=== PATIENT | female | born 1970 | race Caucasian/White ===

== ENCOUNTER → 2017-04-23 | Outpatient (CLI) | payer BC ==
--- NOTE | 2017-04-23 21:19 | WWHP ---
[facility] - HISTORY AND PHYSICAL DATE OF SERVICE: 04/23/2017 CHIEF COMPLAINT: The patient is here for her routine gynecologic exam and mammogram. HPI: This is a 46-year-old G4, P2-0-2-2 with an LMP of 03/11/2017. She states she has had some recent slight menstrual irregularity. In February, she had two periods and did not have a period in March. She is status post tubal ligation. She also states she has felt "hormonal." She states she has days that are "dark." She denies suicidal thoughts. She has experienced occasional hot flashes. Prior to February, her periods were regular every month. The patient is currently undergoing a divorce and this should be finalized soon. She does have a new partner since September 2016 and is sexually active. She has not been using condoms. PAST MEDICAL HISTORY: Chronic back pain, seasonal allergies, vertigo, and gastroesophageal reflux disease. MEDICATIONS: Prevacid daily, Flonase daily. ALLERGIES: ASPIRIN, WHICH CAUSE NAUSEA AND VOMITING. PAST SURGICAL HISTORY: Tubal ligation in 2007, breast lump removed in the past which was benign. 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 SOCIAL HISTORY: She denies tobacco use. She previously drank up to 24 beers per week, but has decreased this to 4 drinks per week. She does use medical marijuana and denies any other drug use. She is currently undergoing a divorce and has been with her current boyfriend since September 2016 and is sexually active. 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 FAMILY HISTORY: Unchanged from the 09/07/2015 H and P. REVIEW OF SYSTEMS: She has lost about 19 pounds over the last year. She denies respiratory, cardiac or GI problems. PHYSICAL EXAM: Blood pressure 103/65, height 5 feet 10 inches, weight 157 pounds, temperature 97.8, pulse 65. Her BMI is 23. This is a well-developed, well-nourished white female who is alert and oriented x3, in no acute distress. HEENT is within normal limits. NECK: Supple without mass or thyromegaly. Chest and lungs: Clear to auscultation. HEART: Regular rate and rhythm breasts are without mass or discharge. Axillary exam is negative for adenopathy. Back negative for CVA tenderness. ABDOMEN: Soft, nontender, without palpable masses. Pelvic exam normal external genitalia. Cervix and vagina appear normal. There is no unusual discharge. There is no evidence of prolapse. There is no cervical motion tenderness. The uterus is mid position nongravid size and nontender. There are no palpable adnexal masses or tenderness. Rectal exam is negative for mass or tenderness and is negative for occult blood. Extremities nontender. IMPRESSION: 1. 46-year-old premenopausal female who is status post tubal ligation with normal gynecologic exam. 2. The patient has had some recent menstrual irregularity during the past 2 months with occasional hot flashes, possible perimenopause. 3. The patient has had some emotional changes which can be related to her current divorce. It may also be related to possible hormonal changes related to the perimenopause. PLAN: 1. Pap smear was deferred since she had a normal one last year. 2. Self breast examination was discussed. 3. Mammogram will be done today. 4. Blood test to be done today will include HIV, hepatitis B surface antigen, hepatitis C antibody, RPR and, TSH. 5. GC and chlamydia testing from the cervix has been obtained. 6. STD prevention was discussed. I have recommended condom use if she is sexually active. 7. We have discussed options such as counseling, especially since she is going through a stressful time with her divorce and is having some emotional issues. The [employer] pamphlet, Who to Call, was given to the patient for possible counseling and social security assessor. She was also instructed to call if she is having worsening of her emotional changes or if she would like to talk to someone regarding her social situation, especially if she has any types of suicidal thoughts. She states she will notify me if this is the case. 8. She will keep a menstrual calendar and return if she is having greater menstrual problems. 9. She will return in 1 year and p.r.n. MMODL / IJN: [id number] / GT
[2017-04-24 01:59] LABS: Treponemal Ab Non-Reactive (Non-Reactive)
--- NOTE | 2017-04-24 13:36 | MM ---
Reason for exam: screening (asymptomatic). Last mammogram was performed 1 year and 7 months ago. History: Patient history of endometrial cancer. Family history of breast cancer in aunt. Benign excisional biopsy, March 30, 1997. Physical Findings: A clinical breast exam by your physician is recommended on an annual basis and results should be correlated with mammographic findings. MG 3D Screening Mammo W/Cad Bilateral CC and MLO view(s) were taken. Prior study comparison: September 07, 2015, bilateral MG 3d screening mammo w/cad. March 24, 1997, bilateral special view mammogram. The breast tissue is heterogeneously dense. This may lower the sensitivity of mammography. Increasing group of microcalcifications upper inner right breast. This finding is changed when compared with previous exams. ASSESSMENT: Incomplete: need additional imaging evaluation, BI-RAD 0 RECOMMENDATION: Special view mammogram of the right breast. [facility] will attempt to contact patient to return for supplemental views.
== END ==
LOC: WWCWWP 15:46
PROVIDERS: ATTEND Obstetrics & Gynecology
DX: Z12.31 Encounter for screening mammogram for malignant neoplasm of breast (principal); Z11.3 Encounter for screening for infections with a predominantly sexual mode of transmission; Z00.00 Encounter for general adult medical examination without abnormal findings
CPT/HCPCS: 86803; 84443; 87340; 87491; 87591; 86780; 87390; 77063; 36415; G0202

== ENCOUNTER → 2017-04-26 | Outpatient (CLI) | payer BC ==
--- NOTE | 2017-04-29 13:14 | MM ---
Reason for exam: additional evaluation requested from abnormal screening. Last mammogram was performed less than 1 month ago. History: Patient history of endometrial cancer. Family history of breast cancer in aunt. Benign excisional biopsy, March 30, 1997. Physical Findings: Nurse did not find any significant physical abnormalities on exam. MG Work Up Mamm w CAD RT LM, CC with magnification, and LM with magnification view(s) were taken of the right breast. Prior study comparison: April 23, 2017, bilateral MG 3d screening mammo w/cad. September 07, 2015, bilateral MG 3d screening mammo w/cad. The breast tissue is heterogeneously dense. This may lower the sensitivity of mammography. Finding: There are intermediate concern, suspicious round, grouped/clustered calcifications in the lower outer quadrant, middle position of the right breast. These results were verbally communicated with the patient and result sheet given to the patient on 04/26/17. ASSESSMENT: Suspicious, BI-RAD 4 RECOMMENDATION: Surgical consultation and stereotactic core biopsy of the right breast. Called Dr. Parker with mammographic findings and has scheduled an appointment for the patient for 05/02/17 at 11:[address] Reyez. PRELIMINARY REPORT CALLED AND FAXED TO DR. REYEZ ON 04/29/17.
== END | disposition home or self-care (01) ==
LOC: RADMAMWWP 15:59
PROVIDERS: ATTEND Obstetrics & Gynecology
DX: R92.8 Other abnormal and inconclusive findings on diagnostic imaging of breast (principal); Z98.890 Other specified postprocedural states

== ENCOUNTER → 2017-05-13 | Day surgery (SDC) | payer BC ==
[2017-05-13 13:45] VITALS: RESP 16; BMI 22.6
[2017-05-13 15:34] VITALS: BP 120/81; PULSE 68; TEMP 97.5
--- NOTE | 2017-05-13 20:08 | MM ---
EXAMINATION TYPE: MG stereo VAD BX RT DATE OF EXAM: 05/13/2017 COMPARISON: 04/23/2017 and 04/26/2017 CLINICAL HISTORY: 46-year-old female with a microcalcifications TECHNIQUE: Stereotactic guided core biopsy of the right breast. FINDINGS: The procedure of stereotactic guided core biopsy was explained to the patient. Benefits, alternatives, and risks were discussed. An informed consent was then obtained. The shortness pathway for biopsy was chosen. Shortness pathway was CC from below approach. I performed the localization, followed by the remainder of the procedure. A vacuum assisted biopsy gun was used to obtain multiple core samples. Initially, there was malfunction of the biopsy needle. Suction was present but there was no cutting action. The needle was exchanged out and appropriate samples were subsequently acquired. The patient tolerated the procedure well without any immediate complication. The patient was kept in the radiology department for short stay after the procedure and then discharged home in stable condition. Targeted calcifications are identified in specimen mammogram. Post biopsy mammogram shows approximately 1.5 to 2.0 cm of inferior clip migration relative to the targeted microcalcifications on the preprocedure images. IMPRESSION: SUCCESSFUL, UNCOMPLICATED STEREOTACTIC GUIDED CORE BIOPSY OF RIGHT BREAST MICROCALCIFICATIONS; NOTE SOME INFERIOR CLIP MIGRATION. FULL PATHOLOGY RESULTS TO FOLLOW. Pathology Results: Benign BREAST, RIGHT, STEREOTACTIC CORE BIOPSY: FIBROCYSTIC CHANGE (STROMAL FIBROSIS, CYST FORMATION, APOCRINE METAPLASIA, ADENOSIS, DUCT HYPERPLASIA AND CALCIFICATIONS). Recommendation Follow up mammogram of the right breast in 6 months. GT
== END ==
LOC: RADMAMWWP 13:24
PROVIDERS: ATTEND Surgery
DX: N60.31 Fibrosclerosis of right breast (principal); N60.01 Solitary cyst of right breast; N60.81 Other benign mammary dysplasias of right breast; N60.21 Fibroadenosis of right breast; R92.1 Mammographic calcification found on diagnostic imaging of breast; Z88.6 Allergy status to analgesic agent; R92.0 Mammographic microcalcification found on diagnostic imaging of breast
CPT/HCPCS: 19081; A4648; J2001; 88305

== ENCOUNTER → 2019-05-27 | Outpatient (CLI) | payer BC ==
[2019-05-27 08:19] VITALS: BP 108/73; PULSE 82; RESP 18; TEMP 97.9
--- NOTE | 2019-05-27 09:16 | P.HPOB ---
History of Present Illness H&P Date: 05/27/19 Chief Complaint: The patient is here for her routine gynecologic exam and ma mmogram. This is a 48-year-old with an LMP of 05/03/2019. The patient is status post tubal ligation. The patient is complaining of urinary incontinence with coughing, laughing, and sneezing. She states that now can happen just about every time. She states it is an immediate leak without urge sensation. Menstrual periods have been fairly regular every month. She did have a longer than normal menstrual period in February which lasted 20 days and this was unusual for her. She has been experiencing hot flashes for about 1 year but they are not very severe. She is remarried and states she is much more sexually active than with her previous . She often has sexual activity twice a day. She states she has had a few episodes where she has had cramping either during or after sexual intercourse. This has happened about 5 times over the past 2 years. This has not been a major problem for her. Review of Systems She has gained about 25 pounds over the past 2 years. She states this was after losing a significant amount of weight during her divorce at that time. She has gained that weight back. She denies respiratory or cardiac problems. GI: Severe gastric reflux and she is currently undergoing a workup for this through another doctor. Past Medical History Past Medical History: GERD/Reflux Additional Past Medical History / Comment(s): Chronic back pain, seasonal ALLERGIES, vertigo. 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 History of Any Multi-Drug Resistant Organisms: None Reported Past Surgical History: Breast Surgery, Tubal Ligation Additional Past Surgical History / Comment(s): 1996-right excisional biopsy benign. Past Anesthesia/Blood Transfusion Reactions: No Reported Reaction Past Psychological History: No Psychological Hx Reported Smoking Status: Never smoker Past Alcohol Use History: Occasional Additional Past Alcohol Use History / Comment(s): 4 drinks weekly. She previously was a heavier alcohol user. Past Drug Use History: Marijuana Additional Drug Use History / Comment(s): medical marijuana card Additional History: She has been since February 2019 and this is her second marriage. She has been with her since 2016. 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 - Past Family History Grandparents Family Medical History: Cancer, Diabetes Mellitus Additional Family Medical History / Comment(s): Grandparents had heart disease. A maternal aunt had breast cancer. A grandfather had diabetes. Medications and Allergies Home Medications Medication Instructions Recorded Confirmed Type Fluticasone Nasal [place] [Flonase 2 spr EA NOSTRIL DAILY 08/22/15 05/27/19 History Nasal [place]] Lansoprazole [Prevacid] 30 mg PO DAILY 08/22/15 05/27/19 History Cetirizine HCl [Zyrtec] 10 mg PO DAILY 05/27/19 05/27/19 History Allergies Allergy/AdvReac Type Severity Reaction Status Date / Time aspirin AdvReac Vomiting Verified 05/27/19 08:13 Exam Vital Signs Temp Pulse Resp BP Pulse Ox 05/27/19 08:17 97.9 F 82 18 108/73 98 Intake and Output 05/26/19 05/27/19 05/27/19 22:59 06:59 14:59 Other: Weight 82.554 kg Height 5 feet 10 inches, weight 182 pounds, BMI 26. This is a well-developed well-nourished white female who is alert and oriented times 3 in no acute distress. HEENT: Within normal limits. NECK: Supple without mass or thyromegaly. CHEST AND LUNGS: Clear to auscultation. HEART: Regular rate and rhythm. BREASTS: Are without mass or discharge. AXILLARY EXAM: Negative for adenopathy. BACK: Negative for CVA tenderness. ABDOMEN: Soft, nontender, without palpable masses. PELVIC EXAM: Normal external genitalia. Cervix and vagina appear normal. The cervix is slightly friable upon doing the Pap smear. There is no cervical motion tenderness There is no unusual discharge. There is no evidence of prolapse at rest. With cough and Valsalva there is moderate urethral and bladder mobility with no demonstrated urinary leakage. The uterus is midposition, nongravid size and nontender. There are no palpable adnexal masses or tenderness. RECTAL EXAM: negative for mass or tenderness and is negative for occult blood. Anal sphincter tone is slightly decreased. EXTREMITIES: Nontender. IMPRESSION: 1. 48-year-old female with normal gynecologic exam at rest who is status post tubal ligation. 2. Moderate Stress urinary incontinence with moderate urethral hypermobility. 3. Infrequent postcoital or coital cramping with no significant physical findings at this time. 4. Probable perimenopausal state. PLAN: 1. Pap smear was performed. 2. Self breast awareness was discussed with the patient. 3. Screening mammogram will be done today. 4. The patient will keep a menstrual and symptom calendar. She will call if she is having menstrual problems. 5. We have discussed ketal exercises and timed voids. She is also requesting a referral to a gynecologic urologist. She will be referred to Dr. Diez at [facility]. 6. If she is having more frequent cramping associated with sexual activity, she was instructed to call and we will consider further evaluation and possible pelvic ultrasound. 7. She was advised to return in one year for her annual well woman exam and as needed.
--- NOTE | 2019-05-28 11:12 | MM ---
Reason for exam: screening (asymptomatic). Last mammogram was performed 2 years and 1 month ago. History: Patient history of endometrial cancer. Family history of breast cancer in aunt. Benign MG stereo VAD BX RT of the right breast, May 13, 2017. Benign excisional biopsy, March 30, 1997. Physical Findings: A clinical breast exam by your physician is recommended on an annual basis and results should be correlated with mammographic findings. MG 3D Screening Mammo W/Cad Bilateral CC and MLO view(s) were taken. Prior study comparison: April 26, 2017, right breast MG work up mamm w CAD RT. April 23, 2017, bilateral MG 3d screening mammo w/cad. The breast tissue is heterogeneously dense. This may lower the sensitivity of mammography. There is no discrete abnormality. No significant changes when compared with prior studies. ASSESSMENT: Negative, BI-RAD 1 RECOMMENDATION: Routine screening mammogram of both breasts in 1 year.
== END ==
LOC: WWCWWP 08:06
PROVIDERS: ATTEND Obstetrics & Gynecology
DX: Z12.31 Encounter for screening mammogram for malignant neoplasm of breast (principal)
CPT/HCPCS: 77063; 77067

== ENCOUNTER 2019-06-11 14:20 | Emergency (ER) | payer BC ==
[2019-06-11] MEDS ORDERED: SODIUM CHLORIDE 0.9% 1,000 ML IV STA (16:45)
[2019-06-11] MEDS ORDERED: FAMOTIDINE 20 MG/2 ML VIAL IV STA (16:45)
--- NOTE | 2019-06-11 16:56 | ED ---
Abdominal Pain HPI - General Chief Complaint: Abdominal Pain Stated Complaint: Upper GI infection Time Seen by Provider: 06/11/19 16:32 Source: patient Mode of arrival: ambulatory Limitations: no limitations - History of Present Illness Initial Comments: Patient is a 48-year-old female with history of GERD presenting to emergency Department with a chief complaint of nausea and vomiting down pain. Patient reports symptoms began about one year ago after she was diagnosed. Patient reports she takes Prevacid daily. Patient reports her last 2 weeks she has developed increased nausea and vomiting. Patient reports she had an upper endoscopy performed which ruled out ulcers. Patient reports she is scheduled to have a right upper quadrant ultrasound. Patient reports the pain is typically associated after eating. She reports right upper quadrant, epigastric left upper quadrant abdominal pain. Had one episode of diarrhea today denies night sweats or chills. Denies taking any medication. Denies increased urgency or frequency or dysuria. Denies any vaginal bleeding or discharge. Denies hematuria, hematochezia or melena. - Related Data Home Medications Medication Instructions Recorded Confirmed Fluticasone Nasal [place] [Flonase 2 spr EA NOSTRIL DAILY 08/22/15 05/27/19 Nasal [place]] Lansoprazole [Prevacid] 30 mg PO DAILY 08/22/15 05/27/19 Cetirizine HCl [Zyrtec] 10 mg PO DAILY 05/27/19 05/27/19 Previous Rx's Medication Instructions Recorded Metoclopramide [Reglan] 10 mg PO TID PRN #15 tab 06/11/19 Allergies Allergy/AdvReac Type Severity Reaction Status Date / Time aspirin AdvReac Vomiting Verified 06/11/19 14:54 Review of Systems ROS Statement: Those systems with pertinent positive or pertinent negative responses have been documented in the HPI. ROS Other: All systems not noted in ROS Statement are negative. Past Medical History Past Medical History: GERD/Reflux Additional Past Medical History / Comment(s): Chronic back pain, seasonal ALLERGIES, vertigo. 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 History of Any Multi-Drug Resistant Organisms: None Reported Past Surgical History: Breast Surgery, Tubal Ligation Additional Past Surgical History / Comment(s): 1996-right excisional biopsy benign. Past Anesthesia/Blood Transfusion Reactions: No Reported Reaction Past Psychological History: No Psychological Hx Reported Smoking Status: Never smoker Past Alcohol Use History: Occasional Past Drug Use History: Marijuana - Past Family History Grandparents Family Medical History: Cancer, Diabetes Mellitus Additional Family Medical History / Comment(s): Grandparents had heart disease. A maternal aunt had breast cancer. A grandfather had diabetes. General Exam Limitations: no limitations General appearance: alert, in no apparent distress, in distress Head exam: Present: atraumatic, normocephalic, normal inspection Eye exam: Present: normal appearance, PERRL, EOMI Pupils: Present: normal accommodation ENT exam: Present: normal exam, normal oropharynx, mucous membranes moist, TM's normal bilaterally, normal external ear exam Neck exam: Present: normal inspection, full ROM Respiratory exam: Present: normal lung sounds bilaterally Cardiovascular Exam: Present: regular rate, normal rhythm, normal heart sounds GI/Abdominal exam: Present: soft, tenderness (Left upper quadrant, epigastric and right upper quadrant. Negative Adame. Negative McBurney point tenderness.), normal bowel sounds. Absent: distended, guarding, rebound, rigid, bruit, pulsatile mass, hernia Extremities exam: Present: normal inspection, full ROM Back exam: Present: normal inspection, full ROM Neurological exam: Present: alert, oriented X3 Psychiatric exam: Present: normal affect, normal mood Skin exam: Present: warm, dry, intact, normal color Course Vital Signs 06/11/19 06/11/19 14:50 18:24 Temperature 97.3 F L 98.8 F Pulse Rate 90 74 Respiratory 16 18 Rate Blood Pressure 106/58 135/67 O2 Sat by Pulse 99 100 Oximetry Medical Decision Making - Medical Decision Making She is a 48-year-old female presenting to emergency Department with chief complaint of abdominal pain. Patient is a ongoing episodes of vomiting and diarrhea for the past 8 months. She has been dealing with GERD for about a year. On exam there is left upper quadrant, epigastric and right upper quadrant abdominal pain. Negative Adame sign. Patient has leukocytosis of 15,000 which is suspect is secondary to the nausea or vomiting. Patient was given fluids, antiemetics and analgesia. On reevaluation patient reports improvement in her symptoms. However, she reports the pain continues to be there. CT of abdomen and pelvis performed showing no acute pathologies. Small haital hernia noted. I suspect the patient's symptoms are secondary to her GERD. Patient advised to continue taking the Prevacid at home. Patient was to follow with primary care. Strict return parameters were thoroughly discussed with patient was understanding and agreeable. Case discussed with physician. - Lab Data Result diagrams: 06/11/19 16:55 06/11/19 16:55 Lab Results 06/11/19 06/11/19 Range/Units 16:55 16:55 WBC 15.3 H (3.8-10.6) k/uL RBC 4.52 (3.80-5.40) m/uL Hgb 12.9 (11.4-16.0) gm/dL Hct 38.5 (34.0-46.0) % MCV 85.2 (80.0-100.0) fL MCH 28.6 (25.0-35.0) pg MCHC 33.5 (31.0-37.0) g/dL RDW 11.5 (11.5-15.5) % Plt Count 295 (150-450) k/uL Neutrophils % 95 % Lymphocytes % 2 % Monocytes % 1 % Eosinophils % 2 % Basophils % 0 % Neutrophils # 14.5 H (1.3-7.7) k/uL Lymphocytes # 0.3 L (1.0-4.8) k/uL Monocytes # 0.2 (0-1.0) k/uL Eosinophils # 0.3 (0-0.7) k/uL Basophils # 0.0 (0-0.2) k/uL Sodium 139 (137-145) mmol/L Potassium 4.2 (3.5-5.1) mmol/L Chloride 108 H (98-107) mmol/L Carbon Dioxide 18 L (22-30) mmol/L Anion Gap 13 mmol/L BUN 18 H (7-17) mg/dL Creatinine 0.55 (0.52-1.04) mg/dL Est GFR (CKD-EPI)AfAm >90 (>60 ml/min/1.73 sqM) Est GFR (CKD-EPI)NonAf >90 (>60 ml/min/1.73 sqM) Glucose 147 H (74-99) mg/dL Calcium 10.0 (8.4-10.2) mg/dL Total Bilirubin 0.7 (0.2-1.3) mg/dL AST 29 (14-36) U/L ALT 18 (4-34) U/L Alkaline Phosphatase 67 (38-126) U/L Total Protein 7.7 (6.3-8.2) g/dL Albumin 4.7 (3.5-5.0) g/dL Amylase 76 (30-110) U/L Lipase 85 (23-300) U/L Disposition Clinical Impression: Abdominal pain, Nausea & vomiting Disposition: HOME SELF-CARE Condition: Stable Instructions (If sedation given, give patient instructions): Abdominal Pain (ED) Additional Instructions: Please follow up with primary care. Please return to emergency department if symptoms worsen. Please take prescribed medication as directed. Prescriptions: Metoclopramide [Reglan] 10 mg PO TID PRN #15 tab PRN Reason: GERD Is patient prescribed a controlled substance at d/c from ED?: No Referrals: Heri Zayas MD [Primary Care Provider] - 1-2 days Time of Disposition: 18:49
[2019-06-11 17:18] LABS: ALT 18 U/L (4-34); AST 29 U/L (14-36); African American GFR (CKD) >90 (>60 ml/min/1.73 sqM); Albumin 4.7 g/dL (3.5-5.0); Alkaline Phosphatase 67 U/L (38-126); Amylase 76 U/L (30-110); Anion Gap 13 mmol/L; Basophils % (A) 0 %; Blood Urea Nitrogen 18 mg/dL (7-17); Carbon Dioxide 18 mmol/L (22-30); Chloride 108 mmol/L (98-107); Eosinophils # (A) 0.3 k/uL (0-0.7); Eosinophils % (A) 2 %; Glucose 147 mg/dL (74-99); HCT 38.5 % (34.0-46.0); HGB 12.9 gm/dL (11.4-16.0); Lymphocytes # (A) 0.3 k/uL (1.0-4.8); Lymphocytes % (A) 2 %; MCH 28.6 pg (25.0-35.0); MCHC 33.5 g/dL (31.0-37.0); MCV 85.2 fL (80.0-100.0); Mean Platelet Volume 8.6; Monocytes # (A) 0.2 k/uL (0-1.0); Monocytes % (A) 1 %; Neutrophils # (A) 14.5 k/uL (1.3-7.7); Neutrophils % (A) 95 %; Non-African American GFR(CKD) >90 (>60 ml/min/1.73 sqM); Platelet Count 295 k/uL (150-450); Potassium 4.2 mmol/L (3.5-5.1); RBC 4.52 m/uL (3.80-5.40); RDW 11.5 % (11.5-15.5); Sodium 139 mmol/L (137-145); Total Bilirubin 0.7 mg/dL (0.2-1.3); Total Protein 7.7 g/dL (6.3-8.2); WBC 15.3 k/uL (3.8-10.6)
[2019-06-11] MEDS ORDERED: METOCLOPRAMIDE 5 MG/ML 2 ML VIAL IVP STA (17:56)
[2019-06-11] MEDS ORDERED: diphenhydrAMINE 50 MG/ML 1 ML VIAL IVP STA (17:57)
[2019-06-11] MEDS ORDERED: MORPHINE SULFATE 4 MG/ML SYRINGE IVP STA (17:57)
--- NOTE | 2019-06-11 18:24 | CT ---
EXAMINATION TYPE: CT abdomen pelvis w con DATE OF EXAM: 06/11/2019 COMPARISON: None HISTORY: Abdominal pain, nausea and vomiting. CT DLP: 1041.4 mGycm Automated exposure control for dose reduction was used. CONTRAST: Performed with IV Contrast, patient injected with 100ml mL of Isovue 300. Exam performed from the diaphragm to the floor the pelvis. Lung bases are clear. There is no pleural effusion. Heart appears normal. There is small hiatal herni a. Liver spleen pancreas gallbladder appear normal. Bile ducts are not dilated. There is no adrenal mass. Kidneys show satisfactory contrast opacification. There is no hydronephrosi s. Ureters are not dilated. There is no retroperitoneal adenopathy. Bladder distends smoothly. There is no inguinal hernia. Uterus is anteverted. There cul-de-sac is clear of fluid. Lumbar spine is inta ct. Bony pelvis is intact. There are clips from tubal ligation. There is no sign of thickened appendix. There is no mesenteric e andres. There is no ascites or free air. There is no evidence of bowel obstruction. IMPRESSION: Negative CT scan abdomen and pelvis.
[2019-06-11 18:25] VITALS: BP 135/67; PULSE 74; RESP 18; TEMP 98.8
== END 2019-06-11 19:00 | disposition home or self-care (01) ==
LOC: EC 14:20
DX: R11.2 Nausea with vomiting, unspecified (principal); R10.11 Right upper quadrant pain; R10.13 Epigastric pain; R10.12 Left upper quadrant pain; D72.829 Elevated white blood cell count, unspecified; K44.9 Diaphragmatic hernia without obstruction or gangrene; R19.7 Diarrhea, unspecified; K21.9 Gastro-esophageal reflux disease without esophagitis; Z88.6 Allergy status to analgesic agent; Z79.51 Long term (current) use of inhaled steroids; Z79.899 Other long term (current) drug therapy; Z91.048 Other nonmedicinal substance allergy status
CPT/HCPCS: 36415; 80053; 82150; 83690; 85025; 74177; 99284; 96374; 96375 ×3; 96361; J2270; J1200; J2765; Q9967

== ENCOUNTER → 2019-06-12 | Outpatient (CLI) | payer BC ==
--- NOTE | 2019-06-12 10:33 | US ---
EXAMINATION TYPE: US abdomen limited DATE OF EXAM: 06/12/2019 COMPARISON: CT from yesterday CLINICAL HISTORY: R10.13 Epigastric Pain, K21.9 GERD, R11.0 Nausea. EXAM MEASUREMENTS: Liver Length: 12.6 cm Gallbladder Wall: 0.2 cm CBD: 0.6 cm Right Kidney: 10.5 x 5.2 x 5.0 cm Pancreas: Tail obscured by overlying bowel gas. Duct visualized measuring 0.2 cm Liver: wnl Gallbladder: wnl Evidence for sonographic Aadme's sign: No CBD: wnl Right Kidney: No hydronephrosis or masses seen IMPRESSION: Unremarkable study.
== END | disposition home or self-care (01) ==
LOC: RADUSWWP 10:03
PROVIDERS: ATTEND Family Medicine
DX: K21.9 Gastro-esophageal reflux disease without esophagitis (principal); R10.13 Epigastric pain; R11.0 Nausea
CPT/HCPCS: 76705

== ENCOUNTER → 2019-06-23 | Outpatient (CLI) | payer BC ==
--- NOTE | 2019-06-23 15:30 | NM ---
EXAMINATION TYPE: NM hepatobiliary w EF DATE OF EXAM: 06/23/2019 COMPARISON: Abdominal ultrasound dated 06/12/2019 HISTORY: Generalized abdominal pain TECHNIQUE: After the intravenous administration of 4.94 mCi Tc 99m Mebrofenin hepatobiliary scintigra phy is performed. Immediate images post injection. FINDINGS: There is satisfactory initial accumulation of tracer by the liver. The gallbladder is visualized wit hin 16 minutes. The small bowel activity is noted within 14 minutes. At one hour 8 ounces of oral e nsure plus is given to mimic CCK and gallbladder ejection fraction is calculated at 58 %, in the norm al range. Therefore there is no scintigraphic evidence of cystic or common bile duct obstruction to suggest acute cholecystitis or gallbladder dyskinesia. IMPRESSION: No scintigraphic evidence of acute cholecystitis, chronic cholecystitis, nor biliary dysk inesia.
== END | disposition home or self-care (01) ==
LOC: RADNMMAIN 13:03
PROVIDERS: ATTEND Family Medicine
DX: R10.84 Generalized abdominal pain (principal); R19.7 Diarrhea, unspecified; R11.2 Nausea with vomiting, unspecified; R10.13 Epigastric pain; Z88.6 Allergy status to analgesic agent
CPT/HCPCS: 78226; A9537

== ENCOUNTER 2020-02-05 06:44 | Emergency (ER) | payer BC, OTHER ==
[2020-02-05 06:56] VITALS: TEMP 97.8
[2020-02-05] MEDS ORDERED: SODIUM CHLORIDE 0.9% 1,000 ML IV STA ×2 (07:16)
[2020-02-05] MEDS ORDERED: ONDANSETRON 4 MG/2 ML VIAL IVP STA (07:16)
[2020-02-05] MEDS ORDERED: PANTOPRAZOLE 40 MG/10 ML VIAL IVP STA (07:18)
[2020-02-05] MEDS ORDERED: KETOROLAC 15 MG/ML 1 ML VIAL IVP STA (07:18)
--- NOTE | 2020-02-05 07:25 | ED ---
General Adult HPI - General Chief complaint: Nausea/Vomiting/Diarrhea Stated complaint: vomiting Time Seen by Provider: 02/05/20 07:04 Source: patient, RN notes reviewed, old records reviewed Mode of arrival: wheelchair - History of Present Illness Initial comments: Patient is a 49-year-old female she presents emergency department today for evaluation with chief complaint of nausea and vomiting starting at 1 AM. Patient states she is upper abdominal pain. She reports she's had similar symptoms this for. She denies any history of sick contacts but did recently return from a trip to [place]. He states that she has had upper endoscopies before. Surgical history includes bladder sling and ligation. - Related Data Home Medications Medication Instructions Recorded Confirmed Lansoprazole [Prevacid] 30 mg PO DAILY 08/22/15 02/05/20 Cetirizine HCl [Zyrtec] 10 mg PO DAILY 05/27/19 02/05/20 Previous Rx's Medication Instructions Recorded Ondansetron Odt [Zofran Odt] 4 mg PO Q8HR PRN #12 tab 02/05/20 Allergies Allergy/AdvReac Type Severity Reaction Status Date / Time aspirin AdvReac Vomiting Verified 02/05/20 08:51 Review of Systems ROS Statement: Those systems with pertinent positive or pertinent negative responses have been documented in the HPI. ROS Other: All systems not noted in ROS Statement are negative. Past Medical History Past Medical History: GERD/Reflux Additional Past Medical History / Comment(s): Chronic back pain, seasonal ALLERGIES, vertigo. 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 History of Any Multi-Drug Resistant Organisms: None Reported Past Surgical History: Breast Surgery, Tubal Ligation Additional Past Surgical History / Comment(s): 1996-right excisional biopsy benign. Past Anesthesia/Blood Transfusion Reactions: No Reported Reaction Past Psychological History: No Psychological Hx Reported Smoking Status: Never smoker Past Alcohol Use History: Occasional Past Drug Use History: Marijuana - Past Family History Grandparents Family Medical History: Cancer, Diabetes Mellitus Additional Family Medical History / Comment(s): Grandparents had heart disease. A maternal aunt had breast cancer. A grandfather had diabetes. General Exam - General Exam Comments Initial Comments: 49 year old female. No distress. General appearance: alert, in no apparent distress Head exam: Present: atraumatic, normocephalic, normal inspection Eye exam: Present: normal appearance, PERRL, EOMI. Absent: scleral icterus, conjunctival injection, periorbital swelling ENT exam: Present: normal exam, mucous membranes moist Neck exam: Present: normal inspection. Absent: tenderness, meningismus, lymphadenopathy Respiratory exam: Present: normal lung sounds bilaterally. Absent: respiratory distress, wheezes, rales, rhonchi, stridor Cardiovascular Exam: Present: regular rate, normal rhythm, normal heart sounds. Absent: systolic murmur, diastolic murmur, rubs, gallop, clicks GI/Abdominal exam: Present: soft, normal bowel sounds. Absent: distended, t enderness, guarding, rebound, rigid Extremities exam: Present: normal inspection, full ROM, normal capillary refill. Absent: tenderness, pedal edema, joint swelling, calf tenderness Back exam: Present: normal inspection Neurological exam: Present: alert, oriented X3, CN II-XII intact Psychiatric exam: Present: normal affect, normal mood Skin exam: Present: warm, dry, intact, normal color. Absent: rash Course Vital Signs 02/05/20 02/05/20 06:52 11:13 Temperature 97.8 F Pulse Rate 82 72 Respiratory 16 18 Rate Blood Pressure 115/76 112/58 O2 Sat by Pulse 96 100 Oximetry Medical Decision Making - Medical Decision Making 49-year-old female presents nausea and vomiting starting 1 AM. With epigastric abdominal pain. She is no focal tenderness. Labs reviewed relatively unremarkable. She is given nausea medication Protonix to report some relief but still slightly nauseated. She no further vomiting episodes and emergency department. And Patient was seen putting her fingers in her throat. Her labs did show that she had a mildly elevated glucose of 229. I discussed this with the diagnostic of diabetes. I discussed that she is follow-up with PCP. Discussed case with Dr. Choi whom contacted patient's PCP for new onset diabetes mellitus vomiting. Recommended close follow-up with him in the office. Patient and Patient were informed of this. We'll discharge her with much medication Protonix. - Lab Data Result diagrams: 02/05/20 07:47 02/05/20 07:47 Lab Results 02/05/20 02/05/20 Range/Units 07:47 07:47 WBC 12.7 H (3.8-10.6) k/uL RBC 4.53 (3.80-5.40) m/uL Hgb 13.0 (11.4-16.0) gm/dL Hct 39.1 (34.0-46.0) % MCV 86.1 (80.0-100.0) fL MCH 28.6 (25.0-35.0) pg MCHC 33.2 (31.0-37.0) g/dL RDW 13.0 (11.5-15.5) % Plt Count 294 (150-450) k/uL Neutrophils % 92 % Lymphocytes % 5 % Monocytes % 3 % Eosinophils % 0 % Basophils % 0 % Neutrophils # 11.7 H (1.3-7.7) k/uL Lymphocytes # 0.7 L (1.0-4.8) k/uL Monocytes # 0.3 (0-1.0) k/uL Eosinophils # 0.0 (0-0.7) k/uL Basophils # 0.0 (0-0.2) k/uL Sodium 138 (137-145) mmol/L Potassium 3.9 (3.5-5.1) mmol/L Chloride 107 (98-107) mmol/L Carbon Dioxide 21 L (22-30) mmol/L Anion Gap 10 mmol/L BUN 17 (7-17) mg/dL Creatinine 0.59 (0.52-1.04) mg/dL Est GFR (CKD-EPI)AfAm >90 (>60 ml/min/1.73 sqM) Est GFR (CKD-EPI)NonAf >90 (>60 ml/min/1.73 sqM) Glucose 229 H (74-99) mg/dL Calcium 9.4 (8.4-10.2) mg/dL Total Bilirubin 0.6 (0.2-1.3) mg/dL AST 23 (14-36) U/L ALT 16 (4-34) U/L Alkaline Phosphatase 93 (38-126) U/L Total Protein 7.2 (6.3-8.2) g/dL Albumin 4.3 (3.5-5.0) g/dL Amylase 64 (30-110) U/L Lipase 61 (23-300) U/L Disposition Clinical Impression: Nausea & vomiting, Gastroenteritis Disposition: HOME SELF-CARE Condition: Good Instructions (If sedation given, give patient instructions): Acute Nausea and Vomiting (ED) Additional Instructions: Patient advised to go directly to Dr. Zayas's office. Prescriptions: Ondansetron Odt [Zofran Odt] 4 mg PO Q8HR PRN #12 tab PRN Reason: Nausea Is patient prescribed a controlled substance at d/c from ED?: No Referrals: Heri Zayas MD [Primary Care Provider] - 1-2 days Time of Disposition: 10:26
[2020-02-05 08:07] LABS: Basophils % (A) 0 %; Eosinophils % (A) 0 %; HCT 39.1 % (34.0-46.0); Lymphocytes # (A) 0.7 k/uL (1.0-4.8); Lymphocytes % (A) 5 %; MCH 28.6 pg (25.0-35.0); MCHC 33.2 g/dL (31.0-37.0); MCV 86.1 fL (80.0-100.0); Mean Platelet Volume 8.2; Monocytes # (A) 0.3 k/uL (0-1.0); Monocytes % (A) 3 %; Neutrophils # (A) 11.7 k/uL (1.3-7.7); Neutrophils % (A) 92 %; Platelet Count 294 k/uL (150-450); RBC 4.53 m/uL (3.80-5.40); WBC 12.7 k/uL (3.8-10.6)
[2020-02-05 08:19] LABS: ALT 16 U/L (4-34); AST 23 U/L (14-36); African American GFR (CKD) >90 (>60 ml/min/1.73 sqM); Albumin 4.3 g/dL (3.5-5.0); Alkaline Phosphatase 93 U/L (38-126); Amylase 64 U/L (30-110); Anion Gap 10 mmol/L; Blood Urea Nitrogen 17 mg/dL (7-17); Calcium 9.4 mg/dL (8.4-10.2); Carbon Dioxide 21 mmol/L (22-30); Chloride 107 mmol/L (98-107); Glucose 229 mg/dL (74-99); Non-African American GFR(CKD) >90 (>60 ml/min/1.73 sqM); Potassium 3.9 mmol/L (3.5-5.1); Sodium 138 mmol/L (137-145); Total Bilirubin 0.6 mg/dL (0.2-1.3); Total Protein 7.2 g/dL (6.3-8.2)
[2020-02-05] MEDS ORDERED: SODIUM CHLORIDE 0.9% 1,000 ML IV ONE (09:09)
[2020-02-05] MEDS ORDERED: diphenhydrAMINE 50 MG/ML 1 ML VIAL IVP STA (09:09)
[2020-02-05] MEDS ORDERED: METOCLOPRAMIDE 5 MG/ML 2 ML VIAL IVP STA (09:09)
[2020-02-05] MEDS ORDERED: ONDANSETRON 4 MG ODT STARTER PACK 2 TAB BTL PO STA (10:31)
[2020-02-05 11:15] VITALS: BP 112/58; PULSE 72; RESP 18
== END 2020-02-05 11:15 | disposition home or self-care (01) ==
LOC: EC 06:44
DX: K52.9 Noninfective gastroenteritis and colitis, unspecified (principal); E11.9 Type 2 diabetes mellitus without complications; K21.9 Gastro-esophageal reflux disease without esophagitis; Z79.899 Other long term (current) drug therapy; Z88.6 Allergy status to analgesic agent
CPT/HCPCS: 36415; 80053; 82150; 83690; 85025; 99284; 96374; 96375 ×4; 96361 ×3; J1200; J2765; J2405; J1885; S0119; C9113

== ENCOUNTER → 2020-07-20 | Outpatient (CLI) | payer BC, OTHER ==
[2020-07-20 08:16] VITALS: BP 117/67; PULSE 95; RESP 18; TEMP 98.2
--- NOTE | 2020-07-20 09:05 | P.HPOB ---
History of Present Illness H&P Date: 07/20/20 Chief Complaint: The patient is here for her routine gynecologic exam. This is a 49-year-old with an LMP of March 2020. The patient is status post a tubal ligation. Her menstrual periods have been spacing out and she thinks she had about 4 in the last year. She started having hot flashes when the menstrual periods are spacing out but now they are not very bad. She is complaining of pelvic discomfort and cramping during the past 2 weeks and she wonders if she has a UTI. She states she does not have a history of urinary tract infections in the past. She states she is sexually active with her frequently. She denies any vaginal discharge. She denies dysuria, urinary frequency or urinary urgency. She states the cramping seems to be in the area of the bladder and not on one particular side. She is status post sling procedure for urinary incontinence and this was done in August 2019. Her urinary incontinence is much improved. She states she voids with a good stream. She tries to urinate shortly after sexual intercourse to prevent UTIs. Review of Systems She has gained about 22 pounds over the past year and states she recently has been trying to exercise regularly and eat healthy year but has not been able to lose much weight. Respiratory: Some sinus drainage and occasional cough and is seeing a supervisor yard for this. She denies cardiac problems. GI: Occasional constipation. Past Medical History Past Medical History: GERD/Reflux Additional Past Medical History / Comment(s): Chronic back pain, seasonal ALLERGIES, vertigo. 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 History of Any Multi-Drug Resistant Organisms: None Reported Past Surgical History: Bladder Surgery, Breast Surgery, Tubal Ligation Additional Past Surgical History / Comment(s): 1996-right excisional biopsy benign. Bladder sling procedure in 2019. Past Anesthesia/Blood Transfusion Reactions: No Reported Reaction Past Psychological History: No Psychological Hx Reported Smoking Status: Never smoker Past Alcohol Use History: Occasional (4 per week and has tried to cut out beer.) Additional Past Alcohol Use History / Comment(s): 4 drinks weekly. She bebetodamion henderson was a heavier alcohol user. Past Drug Use History: Marijuana Additional Drug Use History / Comment(s): medical marijuana card Additional History: She has been since 2018 and this is her second marriage. - Past Family History Grandparents Family Medical History: Cancer, Diabetes Mellitus Additional Family Medical History / Comment(s): Grandparents had heart disease. A maternal aunt had breast cancer. A grandfather had diabetes. Medications and Allergies Home Medications Medication Instructions Recorded Confirmed Type Lansoprazole [Prevacid] 30 mg PO DAILY 08/22/15 07/20/20 History Cetirizine HCl [Zyrtec] 10 mg PO DAILY 05/27/19 07/20/20 History Ondansetron Odt [Zofran Odt] 4 mg PO Q8HR PRN #12 tab 02/05/20 07/20/20 Rx Allergies Allergy/AdvReac Type Severity Reaction Status Date / Time aspirin AdvReac Vomiting Verified 07/20/20 08:07 Exam Vital Signs Temp Pulse Resp BP Pulse Ox 07/20/20 08:08 98.2 F 95 18 117/67 98 Intake and Output 07/19/20 07/20/20 07/20/20 22:59 06:59 14:59 Other: Weight 92.533 kg Height 5 feet 9 inches, weight 204 pounds, BMI 30.1. This is a well-developed well-nourished white female who is alert and oriented times 3 in no acute distress. HEENT: Within normal limits. NECK: Supple without mass or thyromegaly. CHEST AND LUNGS: Clear to auscultation. HEART: Regular rate and rhythm. BREASTS: Are without mass or discharge. AXILLARY EXAM: Negative for adenopathy. BACK: Negative for CVA tenderness. ABDOMEN: Soft, nontender, without palpable masses. PELVIC EXAM: Normal external genitalia. Cervix and vagina appear normal. There is no unusual discharge. There is no evidence of prolapse. The uterus is midposition, nongravid size and nontender. There are no palpable adnexal masses or tenderness. RECTAL EXAM: Rectovaginal exam is negative for mass or tenderness and is negative for occult blood. EXTREMITIES: Nontender. IMPRESSION: 1. 49-year-old perimenopausal female who is status post tubal ligation with normal gynecologic exam. 2. Two-week history of mild mid pelvic discomfort and cramping without any significant physical findings at this time. Differential diagnosis will include UTI, ovarian cyst, GI cramping, and bladder spasms. 3. Improved stress urinary incontinence following bladder sling procedure. PLAN: 1. Pap smear was deferred since she had a normal one on 05/27/2019. 2. Self breast awareness was discussed with the patient. 3. Screening mammogram is due and she is scheduled for this on 08/31/2020. The order slip was given to the patient for this. 4. Urine will be obtained for UA and C&S. 5. The patient will call if the discomfort persists be on 2 weeks from now. At that time we will consider further workup such as pelvic ultrasound. She states she is in a monogamous relationship and does not believe she is at risk for STDs. 6. Weight control was discussed. I have stressed the importance of good nutrition, adequate fiber, the importance of not skipping meals, and importance of regular exercise. 7. She was advised to return in one year for her annual well woman exam and as needed.
[2020-07-20 14:19] LABS: Appearance,Urine Clear (Clear); Bilirubin,Urine Negative (Negative); Blood,Urine Negative (Negative); Color,Urine Light Yellow; Glucose,Urine (UA) Negative (Negative); Ketones,Urine Negative (Negative); Leukocyte Esterase,Urine Negative (Negative); Nitrite,Urine Negative (Negative); PH, Urine 6.5 (5.0-8.0); Protein,Urine Negative (Negative); Specific Gravity,Urine 1.013 (1.001-1.035); Urobilinogen,Urine <2.0 mg/dL (<2.0)
--- NOTE | 2020-07-25 09:58 | P.PN ---
Progress Note - Text Progress Note Date: 07/25/20 OUTPATIENT FOLLOW-UP NOTE TEST(S)/RESULTS: Test results from 07/20/2020 include negative urinalysis and negative urine culture. METHOD OF NOTIFICATION: A message with these results was left on the patient's voicemail. PATIENT COMMENTS: DIAGNOSIS: Negative urinalysis and negative urine culture. DISCUSSION: The patient was previously instructed to call if her pelvic discomfort persists beyond 2 weeks after her visit. If so we will consider further testing such as pelvic ultrasound. PLAN: As above.
== END | disposition home or self-care (01) ==
LOC: WWCWWP 08:00
PROVIDERS: ATTEND Obstetrics & Gynecology
DX: R10.2 Pelvic and perineal pain (principal)
CPT/HCPCS: 81003; 87086

== ENCOUNTER → 2022-04-10 | Outpatient (CLI) | payer BC, OTHER ==
[2022-04-10 12:41] VITALS: BP 108/73; PULSE 77; RESP 17; TEMP 98
--- NOTE | 2022-04-10 13:30 | P.HPOB ---
History of Present Illness H&P Date: 04/10/22 Chief Complaint: The patient is here for her routine gynecologic exam and ma mmogram. This is a 51-year-old 0-2 with an LMP of April 2021. The patient had 3 monthly menstrual periods toward the end of 2020. She states hot flashes were worse earlier in 2020, but are not bad now. She is complaining of abdominal bloating and thinks this is related to weight gain, but states she feels like her abdomen is large like when she was in the past. She is status post tubal ligation. She is otherwise without complaints. Review of Systems She is getting about 3 pounds over the past year. Respiratory: She feels like she is getting over a chest cold. She is tested negative for Covid and has tested several times because of the cold symptoms. She denies cardiac problems. GI: Frequent constipation. Increased abdominal size as in the HPI. Past Medical History Past Medical History: GERD/Reflux Additional Past Medical History / Comment(s): Chronic back pain, seasonal ALLERGIES, vertigo. 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 History of Any Multi-Drug Resistant Organisms: None Reported Past Surgical History: Bladder Surgery, Breast Surgery, Tubal Ligation Additional Past Surgical History / Comment(s): 1996-right excisional biopsy benign. Bladder sling procedure in 2019. Colonoscopy 2021(next after 10y). Past Anesthesia/Blood Transfusion Reactions: No Reported Reaction Past Psychological History: No Psychological Hx Reported Smoking Status: Never smoker Past Alcohol Use History: Occasional (6 per week) Additional Past Alcohol Use History / Comment(s): She previously was a heavier alcohol user. Past Drug Use History: Marijuana (Not every day.) Additional Drug Use History / Comment(s): medical marijuana card - Past Family History Grandparents Family Medical History: Cancer, Diabetes Mellitus Additional Family Medical History / Comment(s): Grandparents had heart disease. A maternal aunt had breast cancer. A grandfather had diabetes. Medications and Allergies Home Medications Medication Instructions Recorded Confirmed Type Lansoprazole [Prevacid] 30 mg PO DAILY 08/22/15 04/10/22 History Cetirizine HCl [Zyrtec] 10 mg PO DAILY 05/27/19 04/10/22 History Ondansetron Odt [Zofran Odt] 4 mg PO Q8HR PRN #12 tab 02/05/20 04/10/22 Rx Meclizine [Antivert] 25 mg PO DAILY PRN 04/10/22 04/10/22 History Allergies Allergy/AdvReac Type Severity Reaction Status Date / Time aspirin AdvReac Vomiting Verified 04/10/22 12:37 Exam Vital Signs Temp Pulse Resp BP Pulse Ox 04/10/22 12:38 98 F 77 17 108/73 97 Intake and Output 04/09/22 04/10/22 04/10/22 22:59 06:59 14:59 Other: Weight 93.894 kg Height 5 feet 9 inches, weight 207 pounds, BMI 30.6. This is a well-developed well-nourished white female who is alert and oriented times 3 in no acute distress. HEENT: Within normal limits. NECK: Supple without mass or thyromegaly. CHEST AND LUNGS: Clear to auscultation. HEART: Regular rate and rhythm. BREASTS: Are without mass or discharge. AXILLARY EXAM: Negative for adenopathy. BACK: Negative for CVA tenderness. ABDOMEN: Soft, nontender, without palpable masses. PELVIC EXAM: Normal external genitalia. Cervix and vagina appear normal. There is no unusual discharge. There is no evidence of prolapse. The uterus is mi dposition, nongravid size and nontender. There are no palpable adnexal masses or tenderness. RECTAL EXAM: Rectovaginal exam is negative for mass or tenderness and is negative for occult blood. EXTREMITIES: Nontender. IMPRESSION: 1. 51-year-old perimenopausal female with increasing oligomenorrhea and normal gynecologic exam. 2. Increased abdominal bloating associated with weight gain. PLAN: 1. Pap smear cotest was performed. 2. Self breast awareness was discussed with the patient. We have also discussed symptoms associated with inflammatory breast cancer. 3. Screening mammogram will be done today. 4. Pelvic ultrasound was recommended because of the abdominal bloating. This will be used to rule out things such as ovarian neoplasms and uterine fibroids. The order slip was given to the patient for this. 5. Weight control was discussed. I have stressed the importance of good nutrition, regular exercise, adequate fiber, and regular meals. 6. She has completed her Covid vaccination series and did receive a booster. She states she has had Covid twice. 7. If she continues to be amenorrheic for a total of 12 months or more, she will be considered fully menopausal. 8. She was advised to return in one year for her annual well woman exam and as needed.
--- NOTE | 2022-04-11 16:42 | MM ---
Reason for Exam: Screening (asymptomatic). Last mammogram was performed 2 year(s) and 10 month(s) ago. Patient History: Menarche at age 14. First Full-Term at age 28. Endometrial cancer. 05/13/2017, Benign Core Biopsy on the right side. Benign Excisional Biopsy. Maternal aunt had breast cancer, age 41. Risk Values: Marguerite 5 year model risk: 1.5%. NCI Lifetime model risk: 13.1%. Prior Study Comparison: 04/23/2017 Bilateral Screening Mammogram, [facility]. 04/26/2017 Right Diagnostic Mammogram, [facility]. 05/27/2019 Bilateral Screening Mammogram, [facility]. Tissue Density: The breast tissue is heterogeneously dense. This may lower the sensitivity of mammography. Findings: Analyzed By CAD. Pattern appears symmetrical and stable. Benign calcification is within the right breast. No suspicious groups of microcalcifications, spiculated or lobular masses, architectural distortion or other secondary signs of malignancy are mammographically apparent. Overall Assessment: Benign, BI-RAD 2 Management: Screening Mammogram of both breasts in 1 year. A negative mammogram report should not preclude additional follow up of suspicious palpable abnormalities. Patient should continue monthly self breast exam. A clinical breast exam by your physician is recommended on an annual basis and results should be correlated with mammographic findings. Electronically signed and approved by: Jose J Leonardo D.O. Radiologis
== END ==
LOC: WWCWWP 12:27
PROVIDERS: ATTEND Obstetrics & Gynecology
DX: Z01.419 Encounter for gynecological examination (general) (routine) without abnormal findings (principal); Z12.31 Encounter for screening mammogram for malignant neoplasm of breast; N95.9 Unspecified menopausal and perimenopausal disorder; R14.0 Abdominal distension (gaseous); Z88.6 Allergy status to analgesic agent
CPT/HCPCS: 77063; 77067

== ENCOUNTER → 2023-04-30 | Outpatient (CLI) | payer BC ==
--- NOTE | 2023-04-30 10:55 | XR ---
EXAMINATION TYPE: XR abdomen acute w cxr DATE OF EXAM: 04/30/2023 10:33 AM INDICATION: Patient age:Female; 52 years old; Reason for study: K5900, R1013, R112; [facility]. COMPARISON: CT abdomen pelvis 06/11/2019 TECHNIQUE: Two radiographic views of the abdomen and an a chest radiograph were obtained. FINDINGS CHEST: Lungs/Pleura: The lungs are clear. There is no evidence of pleural effusion, focal consolidation or p neumothorax. Mediastinum: Unremarkable. Vasculature: Normal. Heart: Normal in size. Musculoskeletal: The osseous structures are intact. Remote bilateral rib fractures. Other findings: No significant. FINDINGS ABDOMEN: Bowel gas pattern: Normal without dilated loops of small or large bowel. Mild amount of fecal materia l and gas are demonstrated throughout the colon and rectum. Abnormal calcifications: None. Musculoskeletal: Normal. Other: No pneumoperitoneum. Bilateral tubal ligation clips. IMPRESSION: 1. No radiographic evidence for acute abdominal process. 2. No acute cardiopulmonary process
[2023-04-30 15:30] LABS: Basophils # (A) 0.04 X 10*3/uL (0.00-0.10); Basophils % (A) 0.6 %; Eosinophils # (A) 0.11 X 10*3/uL (0.04-0.35); Eosinophils % (A) 1.7 %; HCT 43.1 % (37.2-46.3); HGB 14.2 g/dL (12.0-15.0); Lymphocytes # (A) 1.85 X 10*3/uL (0.90-5.00); Lymphocytes % (A) 28.5 %; MCH 28.3 pg (27.0-32.0); MCHC 32.9 g/dL (32.0-37.0); MCV 85.9 FL (80.0-97.0); Mean Platelet Volume 10.7 FL (9.5-12.2); Monocytes # (A) 0.48 X 10*3/uL (0.20-1.00); Monocytes % (A) 7.4 %; NRBC Per 100 WBC 0 X 10*3/uL (0.00-0.01); Neutrophils # (A) 3.99 X 10*3/uL (1.80-7.70); Neutrophils % (A) 61.6 %; Platelet Count 352 X 10*3/uL (140-440); RBC 5.02 X 10*6/uL (4.10-5.20); RDW 12.1 % (11.5-14.5); WBC 6.48 X 10*3/uL (4.50-10.00)
[2023-04-30 15:40] LABS: ALT 19 U/L (8-44); AST 20 U/L (13-35); Albumin 4.6 g/dL (3.8-4.9); Albumin/Globulin Ratio 1.59 Ratio (1.60-3.17); Alkaline Phosphatase 82 U/L (41-126); Blood Urea Nitrogen 16.8 mg/dL (9.0-27.0); Calcium 10.6 mg/dL (8.7-10.3); Carbon Dioxide 24.6 mmol/L (21.6-31.8); Chloride 103 mmol/L (96-109); Chol/HDL Ratio 2.28 Ratio; Globulin 2.9 g/dL (1.6-3.3); Glucose 93 mg/dL (70-110); LDL Cholesterol,Calculated 75.1 mg/dL (0.0-131.0); Potassium 4.1 mmol/L (3.5-5.5); Sodium 141 mmol/L (135-145); Total Bilirubin 0.4 mg/dL (0.3-1.2); Total Protein 7.5 g/dL (6.2-8.2); VLDL Calculation 10.18 mg/dL (5.00-40.00)
== END | disposition home or self-care (01) ==
LOC: LABWHC1 08:58
PROVIDERS: ATTEND Family Medicine
DX: K59.00 Constipation, unspecified (principal); R10.13 Epigastric pain; R11.2 Nausea with vomiting, unspecified
CPT/HCPCS: 36415; 74022; 80053; 80061; 85025

== ENCOUNTER → 2023-08-21 | Outpatient (CLI) | payer BC ==
--- NOTE | 2023-08-22 07:54 | XR ---
EXAMINATION TYPE: XR sinus DATE OF EXAM: 08/21/2023 CLINICAL HISTORY: pain Four views of the paranasal sinuses are submitted. Paranasal sinuses demonstrate normal aeration and development. No air-fluid levels are seen. There is no evidence for mucosal thickening. Nasal sep chuck is midline. No evidence for bony destructive process. IMPRESSION: Unremarkable evaluation of the paranasal sinuses.
== END | disposition home or self-care (01) ==
LOC: RADXRMAIN 16:00
PROVIDERS: ATTEND Family Medicine
DX: J01.11 Acute recurrent frontal sinusitis (principal)
CPT/HCPCS: 70220

== ENCOUNTER → 2023-10-15 | Outpatient (CLI) | payer BC ==
--- NOTE | 2023-10-16 07:01 | CT ---
EXAMINATION TYPE: CT sinus wo con DATE OF EXAM: 10/15/2023 COMPARISON: None HISTORY: Chronic sinusitis. CT DLP: 495.8 mGycm CONTRAST: 0 mL of Isovue 300 The paranasal sinuses are examined in the axial plane at 2 mm thick sections. Reconstructed images i n the coronal plane were obtained. There is dental amalgam scatter artifact The maxillary sinuses are clear. The ethmoid air cells are clear. There is a small air-fluid level within the left sphenoid sinus. Correlate for acute left sphenoid sinusitis. The frontal sinuses are clear. The septum is evaluated. There is septal deviation to the left. The ostiomeatal units are patent. IMPRESSION: 1. Correlate for left sphenoid sinusitis.
== END ==
LOC: RADCTMAIN 17:08
PROVIDERS: ATTEND Otolaryngology
DX: J32.9 Chronic sinusitis, unspecified (principal)
CPT/HCPCS: 70486

== ENCOUNTER 2024-01-06 14:08 | Emergency (ER) | payer BC ==
[2024-01-06 14:27] VITALS: TEMP 97.6
--- NOTE | 2024-01-06 15:19 | ED ---
Fall HPI - General Chief Complaint: Fall Stated Complaint: Fall Time Seen by Provider: 01/06/24 15:16 Source: patient, RN notes reviewed Mode of arrival: ambulatory Limitations: no limitations - History of Present Illness Initial Comments: 53 year old female presenting to the ER with a chief compliant of a fall. About 5 days ago patient was getting onto a boat and her flip flop got caught on the side causing her to fall into the boat. She reports she landed on her left side. She denies any head injury, LOC ot blood thinner use. She has been taking OTC advil and lidocaine patches without relief. She admits to Painful inspiration and breathing. She denies any chest pain. She is also complaining of right foot pain and bruising. Denies any paresthesias. - Related Data Home Medications Medication Instructions Recorded Confirmed Lansoprazole [Prevacid] 30 mg PO DAILY 08/22/15 04/10/22 Cetirizine HCl [Zyrtec] 10 mg PO DAILY 05/27/19 04/10/22 Meclizine [Antivert] 25 mg PO DAILY PRN 04/10/22 04/10/22 Previous Rx's Medication Instructions Recorded Ondansetron Odt [Zofran Odt] 4 mg PO Q8HR PRN #12 tab 02/05/20 HYDROcodone/APAP 5-325MG [Redding 5] 1 each PO Q6HR PRN #12 tab 01/06/24 Lidocaine 5% Patch [Lidoderm 5% 1 patch TOPICAL DAILY #30 patch 01/06/24 Patch] Allergies Allergy/AdvReac Type Severity Reaction Status Date / Time aspirin AdvReac Vomiting Verified 01/06/24 14:27 Review of Systems ROS Statement: Those systems with pertinent positive or pertinent negative responses have been documented in the HPI. ROS Other: All systems not noted in ROS Statement are negative. Past Medical History Past Medical History: GERD/Reflux Additional Past Medical History / Comment(s): Chronic back pain, seasonal ALLERGIES, vertigo. PAST [employer] HISTORY: She has no history of STDs. History of Any Multi-Drug Resistant Organisms: None Reported Past Surgical History: Bladder Surgery, Breast Surgery, Tubal Ligation Additional Past Surgical History / Comment(s): 1996-right excisional biopsy benign. Bladder sling procedure in 2019. Colonoscopy 2021(next after 10y). Past Anesthesia/Blood Transfusion Reactions: No Reported Reaction Past Psychological History: No Psychological Hx Reported Smoking Status: Never smoker Past Alcohol Use History: Occasional Past Drug Use History: Marijuana - Past Family History Grandparents Family Medical History: Cancer, Diabetes Mellitus Additional Family Medical History / Comment(s): Grandparents had heart disease. A maternal aunt had breast cancer. A grandfather had diabetes. General Exam General appearance: alert, in no apparent distress Head exam: Present: atraumatic, normocephalic, normal inspection Neck exam: Present: normal inspection. Absent: tenderness, meningismus, lymphad enopathy Respiratory exam: Present: normal lung sounds bilaterally, chest wall tenderness (Left anterior chest. No paradoxical chest wall movement. No bruising, erythema wounds or lacerations.). Absent: respiratory distress, wheezes, rales, rhonchi, stridor Cardiovascular Exam: Present: regular rate, normal rhythm, normal heart sounds. Absent: systolic murmur, diastolic murmur, rubs, gallop, clicks Extremities exam: Present: full ROM, normal capillary refill, other (Large bruise to left thigh measuring approximately 10cm x 8cm. Bilateral lower extremities were wrestling tach. There is also bruising to the right third toe. No focal tenderness.). Absent: tenderness, pedal edema, joint swelling, calf tenderness Neurological exam: Present: alert, oriented X3, CN II-XII intact Skin exam: Present: warm, dry, intact, normal color. Absent: rash Course Vital Signs 01/06/24 01/06/24 14:20 16:21 Temperature 97.6 F Pulse Rate 109 H 75 Respiratory 18 16 Rate Blood Pressure 140/68 127/87 O2 Sat by Pulse 98 96 Oximetry Medical Decision Making - Medical Decision Making Was pt. sent in by a medical professional or institution (, PA, SPECIAL INVESTIGATION UNIT INVESTIGATOR, urgent care, hospital, or correction...) When possible be specific @ -[No] Did you speak to anyone other than the patient for history (EMS, parent, family, police, friend...)? What history was obtained from this source @ -[No] Did you review nursing and triage notes (agree or disagree)? Why? @ -[I reviewed and agree with nursing and triage notes] Were old charts reviewed (outside hosp., previous admission, EMS record, old EKG, old radiological studies, urgent care reports/EKG's, correction records)? Report findings @ -[No old charts were reviewed] Differential Diagnosis (chest pain, altered mental status, abdominal pain women, abdominal pain men, vaginal bleeding, weakness, fever, dyspnea, syncope, headache, dizziness, GI bleed, back pain, seizure, CVA, palpatations, mental health, musculoskeletal)? @ -Differential Musculoskeletal: Muscular strain, contusion, ligament sprain, fracture, arthritis, septic arthritis, bursitis, cellulitis, muscle spasm, nerve compression, DVT, arterial occlusion, herpes zoster, electrolyte abnormality, tumor.... This is not meant to be in all inclusive list EKG interpreted by me (3pts min.). @ -None X-rays interpreted by me (1pt min.). @ -Right foot x-ray interpreted by me negative for acute osseous process.Left ribs AP chest x-ray showing a minimally displaced fracture of the lateral aspect of the left fifth rib. No acute cardiopulmonary process. CT interpreted by me (1pt min.). @ -[None done] U/S interpreted by me (1pt. min.). @ -[None done] What testing was considered but not performed or refused? (CT, X-rays, U/S, labs)? Why? @ -[None] What meds were considered but not given or refused? Why? @ -[None] Did you discuss the management of the patient with other professionals (professionals i.e. , PA, SPECIAL INVESTIGATION UNIT INVESTIGATOR, lab, RT, psych nurse, psychologist social, retail greeter, teacher, juvenile officer, director case)? Give summary @ -[No] Was smoking cessation discussed for >3mins.? @ -[No] Was critical care preformed (if so, how long)? @ -[No] Were there social determinants of health that impacted care today? How? (Ho melessness, low income, unemployed, alcoholism, drug addiction, transportation, low edu. Level, literacy, decrease access to med. care, senior living, rehab)? @ -[No] Was there de-escalation of care discussed even if they declined (Discuss DNR or withdrawal of care, Hospice)? DNR status @ -[No] What co-morbidities impacted this encounter? (DM, HTN, Smoking, COPD, CAD, Cancer, CVA, ARF, Chemo, Hep., AIDS, mental health diagnosis, sleep apnea, morbid obesity)? @ -[None] Was patient admitted / discharged? Hospital course, mention meds given and route, prescriptions, significant lab abnormalities, going to OR and other pertinent info. @ -[Discharge. 53-year-old female presented ER with a chief complaint of a fall. History and physical exam completed. Vitals stable. Patient was in no signs of acute distress and nontoxic appearing. Exam is significant for a large bruise to left lateral thigh. There is also significant left-sided chest wall tenderness. No paradoxical chest wall motions. No bruising, erythema or wounds to chest wall. Lung sounds clear to auscultation bilaterally. There is also bruising to right third toe. Patient has full active range of motion of all extremities. Patient is neurovascular intact. X-rays obtained showing a minimally displaced fracture of the lateral aspect of the left fifth rib. Patient received IM 0.5 Dilaudid for pain control in the ER. Upon reevaluation, patient resting complaint exam room in no signs of acute distress. Results discussed with patient, all questions answered. I advised follow-up with PCP. Lidocaine patches and Redding 5 prescribed for pain control at home. I advised patient to take deep breaths every hour. Incentive spirometer given with instructions. Extremely strict return parameters discussed. Patient discharged stable condition. Patient verbally expressed understanding and agreement with care plan. Case discussed with the attending, Dr. Gregory. Undiagnosed new problem with uncertain prognosis? @ -[No] Drug Therapy requiring intensive monitoring for toxicity (Heparin, Nitro, Insulin, Cardizem)? @ -[No] Were any procedures done? @ -[No] Diagnosis/symptom? @ -Rib fracture/contusion Acute, or Chronic, or Acute on Chronic? @ -Acute Uncomplicated (without systemic symptoms) or Complicated (systemic symptoms)? @ -Uncomplicated Side effects of treatment? @ -[No] Exacerbation, Progression, or Severe Exacerbation? @ -[No] Poses a threat to life or bodily function? How? (Chest pain, [place], [place], pneumonia, PE, COPD, DKA, ARF, appy, cholecystitis, CVA, Diverticulitis, Homicidal, Suicidal, threat to staff... and all critical care pts) @ -[No] - Radiology Data Radiology results: report reviewed, image reviewed Disposition Clinical Impression: Contusion, Fall, Rib fracture Disposition: HOME SELF-CARE Condition: Stable Instructions (If sedation given, give patient instructions): How to Use an Incentive Spirometer (ED), Rib Fracture (ED) Additional Instructions: Be sure to take deep breaths hourly. Use incentive spirometer hourly as well. Please alternate prescribed pain medication and [id number] ibuprofen for pain control. Follow-up with PCP. Return to the ER for any new or worsening concerns. Prescriptions: Lidocaine 5% Patch [Lidoderm 5% Patch] 1 patch TOPICAL DAILY #30 patch HYDROcodone/APAP 5-325MG [Redding 5] 1 each PO Q6HR PRN #12 tab PRN Reason: Pain Is patient prescribed a controlled substance at d/c from ED?: Yes When asked, does pt state using other controlled substances?: No If prescribed controlled substance>3 days was MAPS reviewed?: Prescribed <3 Days If opioid is for acute pain is fill amount 7 days or less?: Yes If Rx opioid, was Start Talking consent form obtained?: Yes Referrals: Heri Zayas MD [Primary Care Provider] - 1-2 days Time of Disposition: 16:27
[2024-01-06] MEDS: HYDROmorphone 0.5 MG/0.5 ML SYRINGE IM STA (15:24)
[2024-01-06] MEDS: HYDROcodone/APAP 5-325MG 1 EACH TAB PO STA (15:29)
--- NOTE | 2024-01-06 16:08 | XR ---
Right foot. HISTORY: Pain following trauma COMPARISON: None TECHNIQUE: 3 views of the right foot were obtained. FINDINGS: There is no fracture, dislocation, intraosseous or intra-articular abnormality. IMPRESSION: No significant abnormality seen.
--- NOTE | 2024-01-06 16:12 | XR ---
Chest and left RIBS HISTORY: Fall. COMPARISON: 08/22/2015. TECHNIQUE: 5 views of the left ribs and chest were obtained. FINDINGS: The lungs are clear. There is no pleural effusion or pneumothorax. The heart, pulmonary vasculature, mediastinum and tr appear normal. There is remote healed fracture of the left ninth rib. There is a minimally displaced fracture of the left fifth rib laterally. IMPRESSION: Minimally displaced fracture of the lateral aspect of the left fifth rib. Remote healed fracture left ninth rib. No acute cardiopulmonary disease.
[2024-01-06 16:22] VITALS: BP 127/87; PULSE 75; RESP 16
== END 2024-01-06 17:00 | disposition home or self-care (01) ==
LOC: EC 14:08
DX: S22.32XA Fracture of one rib, left side, initial encounter for closed fracture (principal); Z88.6 Allergy status to analgesic agent; V93.32XA Fall on board fishing boat, initial encounter
CPT/HCPCS: 71101; 73630; 99284; 96372; J1170

== ENCOUNTER 2024-02-24 08:29 | Emergency (ER) | payer BC ==
--- NOTE | 2024-02-24 08:53 | ED ---
Nausea/Vomiting/Diarrhea HPI - General Chief complaint: Nausea/Vomiting/Diarrhea Stated complaint: N/V/D Time Seen by Provider: 02/24/24 08:37 Source: patient, RN notes reviewed Mode of arrival: ambulatory Limitations: no limitations - History of Present Illness Initial comments: This is a 53-year-old female who presents to the emergency department for n ausea, vomiting, and diarrhea. Patient states that it started 3 days ago. States that the diarrhea is every 5 to 15 minutes. Describes this as essentially pure liquid. She has been vomiting multiple times a day as well. Reports generalized cramping in her abdomen and throughout her body. Denies any sick contacts. She was on antibiotics about 3 weeks ago. The repetitive diarrhea is causing burning in her rectum. Denies any fevers or chills, but states that she has had hot flashes. MD complaint: nausea, vomiting, diarrhea - Related Data Home Medications Medication Instructions Recorded Confirmed Lansoprazole [Prevacid] 30 mg PO DAILY 08/22/15 02/24/24 Cetirizine HCl [Zyrtec] 10 mg PO DAILY 05/27/19 02/24/24 Meclizine [Antivert] 25 mg PO TID PRN 04/10/22 02/24/24 Escitalopram Oxalate [Lexapro] 10 mg PO DAILY 02/24/24 02/24/24 Previous Rx's Medication Instructions Recorded Diphenox-Atrop 2.5-0.025 mg 1 - 2 tab PO QID PRN 3 Days #24 tab 02/24/24 [Lomotil] Ondansetron Odt [Zofran Odt] 4 mg PO Q8HR PRN #20 tab 02/24/24 Allergies Allergy/AdvReac Type Severity Reaction Status Date / Time aspirin AdvReac Nausea & Verified 02/24/24 15:12 Vomiting hydromorphone [From Dilaudid] AdvReac Nausea & Verified 02/24/24 15:12 Vomiting Review of Systems ROS Statement: Those systems with pertinent positive or pertinent negative responses have been documented in the HPI. ROS Other: All systems not noted in ROS Statement are negative. Past Medical History Past Medical History: GERD/Reflux Additional Past Medical History / Comment(s): Chronic back pain, seasonal ALLERGIES, vertigo. 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 History of Any Multi-Drug Resistant Organisms: None Reported Past Surgical History: Bladder Surgery, Breast Surgery, Tubal Ligation Additional Past Surgical History / Comment(s): 1996-right excisional biopsy benign. Bladder sling procedure in 2019. Colonoscopy 2021(next after 10y). Past Anesthesia/Blood Transfusion Reactions: No Reported Reaction Past Psychological History: No Psychological Hx Reported Smoking Status: Never smoker Past Alcohol Use History: Occasional Past Drug Use History: Marijuana - Past Family History Grandparents Family Medical History: Cancer, Diabetes Mellitus Additional Family Medical History / Comment(s): Grandparents had heart disease. A maternal aunt had breast cancer. A grandfather had diabetes. General Exam Limitations: no limitations General appearance: alert, in no apparent distress Head exam: Present: atraumatic, normocephalic, normal inspection Respiratory exam: Present: normal lung sounds bilaterally. Absent: respiratory distress, wheezes, rales, rhonchi, stridor Cardiovascular Exam: Present: regular rate, normal rhythm, normal heart sounds. Absent: systolic murmur, diastolic murmur, rubs, gallop, clicks GI/Abdominal exam: Present: soft, tenderness (Generalized), normal bowel sounds. Absent: distended, guarding, rebound, rigid Neurological exam: Present: alert, oriented X3, CN II-XII intact Psychiatric exam: Present: normal affect, normal mood Skin exam: Present: warm, dry, intact, normal color. Absent: rash Course Vital Signs 02/24/24 02/24/24 02/24/24 08:30 09:00 09:32 Temperature 97.4 F L 98.2 F Pulse Rate 133 H 87 87 Respiratory 18 17 18 Rate Blood Pressure 109/92 129/92 129/92 O2 Sat by Pulse 98 99 99 Oximetry 02/24/24 02/24/24 02/24/24 10:13 12:28 14:43 Temperature 97.6 F Pulse Rate 85 68 70 Respiratory 18 17 16 Rate Blood Pressure 135/90 153/137 126/68 O2 Sat by Pulse 97 98 99 Oximetry 02/24/24 02/24/24 15:00 16:52 Temperature 98.0 F Pulse Rate 65 69 Respiratory 16 17 Rate Blood Pressure 128/79 130/83 O2 Sat by Pulse 99 99 Oximetry Medical Decision Making - Medical Decision Making This is a 53-year-old female who presents to the emergency department for nausea, vomiting, and diarrhea. Was pt. sent in by a medical professional or institution? @ -No Did you speak to anyone other than the patient for history? @ -No Did you review nursing and triage notes? @ -Yes, and I agree, it is accurate with regards to the patient's symptoms. Were old charts reviewed? @ -No Differential Diagnosis? @ -Differential Nausea and Vomiting: Gastroenteritis, cholecystitis, appendicitis, pancreatitis, migraine, benign positional vertigo, food borne illness, pyelonephritis, irritable bowel syndrome, influenza, Covid, GERD, incarcerated hernia, intestinal obstruction, this is not meant to be an all-inclusive list. EKG interpreted by me (3pts min.)? @ -Not obtained X-rays interpreted by me (1pt min.)? @ -Not obtained CT interpreted by me (1pt min.)? @ -CT scan of the abdomen and pelvis obtained. My interpretation identifies fat straining around the cecum. U/S interpreted by me (1pt. min.)? @ -Not obtained What testing was considered but not performed? (CT, X-rays, U/S, labs)? Why? @ -None What meds were considered but not given? Why? @ -None Did you discuss the management of the patient with other professionals? @ -Yes, Dr. Radford, who advised aggressive hydration and follow-up in the office tomorrow. Did you reconcile home meds? @ -No Was smoking cessation discussed for >3mins.? @ -No Was critical care preformed (if so, how long)? @ -No Were there social determinants of health that impacted care today? How? (Homelessness, low income, unemployed, alcoholism, drug addiction, transportation, low edu. Level, literacy, decrease access to med. care, snf, rehab)? @ -No Was there de-escalation of care discussed even if they declined? (Discuss DNR or withdrawal of care, Hospice)? @ -No What co-morbidities impacted this encounter? (DM, HTN, Smoking, COPD, CAD, Cancer, CVA, Hep., AIDS, mental health diagnosis, sleep apnea, morbid obesity)? @ -None Was patient admitted / discharged? @ -Discharged. Lab work demonstrates leukocytosis with a white blood cell count of 16.8. She also has an MORRIS with a creatinine of 1.94 and GFR of 29. Lactic acid mildly elevated at 2.1. COVID, influenza, RSV testing negative. Urinalysis grossly contaminated but not overtly suggestive of infection. CT scan of the abdomen and pelvis demonstrates mild colitis of the cecum with vasa recta engorgement wall prominence and minimal adjacent fat stranding. Findings reviewed with the patient. Case discussed with Dr. Radford, who advised aggressive hydration therapy and to follow-up in the office tomorrow. This was discussed with the patient who was comfortable with discharge home, as she felt remarkably improved. She had been given a total of 2.5 L of IV fluids. C. difficile testing was ordered, however the patient was unable to provide a stool sample despite several hours in the emergency department. Her symptoms were well-controlled overall and she was tolerating oral intake. Prescription for Zofran and Lomotil provided. Patient discharged home in stable condition and will contact her primary care provider office tomorrow regarding a follow-up appointment. Case discussed with ED attending Dr. Prater. Return precautions reviewed in depth, the patient is instructed to return to the emergency department with any new, worsening, or concerning symptoms. Patient verbalized understanding. Undiagnosed new problem with uncertain prognosis? @ -None Drug Therapy requiring intensive monitoring for toxicity (Heparin, Nitro, Insulin, Cardizem)? @ -None Were any procedures done? @ -None Diagnosis/symptom? @ -Nausea and vomiting, diarrhea, colitis Acute, or Chronic, or Acute on Chronic? @ -Acute Uncomplicated (without systemic symptoms) or Complicated (systemic symptoms)? @ -Complicated Side effects of treatment? @ -None Exacerbation, Progression, or Severe Exacerbation] @ -Not applicable Poses a threat to life or bodily function? @ -Not at this time, symptoms are improving - Lab Data Result diagrams: 02/24/24 09:02/24/24 09:22 Lab Results 02/24/24 02/24/24 02/24/24 Range/Units : 09: 09: WBC 16.8 H (3.8-10.6) k/uL RBC 5.34 (3.80-5.40) m/uL Hgb 15.6 (11.4-16.0) gm/dL Hct 45.1 (34.0-46.0) % MCV 84.3 (80.0-100.0) fL MCH 29.2 (25.0-35.0) pg MCHC 34.6 (31.0-37.0) g/dL RDW 13.3 (11.5-15.5) % Plt Count 293 (150-450) k/uL MPV 8.8 Neutrophils % 91 % Lymphocytes % 4 % Monocytes % 3 % Eosinophils % 1 % Basophils % 0 % Neutrophils # 15.3 H (1.3-7.7) k/uL Lymphocytes # 0.7 L (1.0-4.8) k/uL Monocytes # 0.5 (0-1.0) k/uL Eosinophils # 0.2 (0-0.7) k/uL Basophils # 0.0 (0-0.2) k/uL Sodium 135 L (137-145) mmol/L Potassium 3.4 L (3.5-5.1) mmol/L Chloride 97 L (98-107) mmol/L Carbon Dioxide 19 L (22-30) mmol/L Anion Gap 19 mmol/L BUN 27 H (7-17) mg/dL Creatinine 1.94 H (0.52-1.04) mg/dL Est GFR (CKD-EPI)AfAm 33 (>60 ml/min/1.73 sqM) Est GFR (CKD-EPI)NonAf 29 (>60 ml/min/1.73 sqM) Glucose 164 H (74-99) mg/dL Lactic Ac Sepsis Rflx Plasma Lactic Acid Robbin 2.1 H* (0.7-2.0) mmol/L Calcium 10.5 H (8.4-10.2) mg/dL Phosphorus 4.5 (2.5-4.5) mg/dL Magnesium 1.8 (1.6-2.3) mg/dL Total Bilirubin 0.5 (0.2-1.3) mg/dL AST 27 (14-36) U/L ALT 19 (4-34) U/L Alkaline Phosphatase 107 (38-126) U/L Total Protein 8.8 H (6.3-8.2) g/dL Albumin 5.0 (3.5-5.0) g/dL Amylase 59 (30-110) U/L Lipase 67 (23-300) U/L Urine Color Urine Appearance (Clear) Urine pH (5.0-8.0) Ur Specific [place] (1.001-1.035) Urine Protein (Negative) Urine Glucose (UA) (Negative) Urine Ketones (Negative) Urine Blood (Negative) Urine Nitrite (Negative) Urine Bilirubin (Negative) Urine Urobilinogen (<2.0) mg/dL Ur Leukocyte Esterase (Negative) Urine RBC (0-5) /hpf Urine WBC (0-5) /hpf Ur Squamous Epith Cells (0-4) /hpf Hyaline Casts (0-2) /lpf Urine Mucus (None) /hpf Influenza Type A (PCR) (Not Detectd) Influenza Type B (PCR) (Not Detectd) RSV (PCR) (Not Detectd) SARS-CoV-2 (PCR) (Not Detectd) 02/24/24 02/24/24 02/24/24 Range/Units 10:05 10:08 13:01 WBC (3.8-10.6) k/uL RBC (3.80-5.40) m/uL Hgb (11.4-16.0) gm/dL Hct (34.0-46.0) % MCV (80.0-100.0) fL MCH (25.0-35.0) pg MCHC (31.0-37.0) g/dL RDW (11.5-15.5) % Plt Count (150-450) k/uL MPV Neutrophils % % Lymphocytes % % Monocytes % % Eosinophils % % Basophils % % Neutrophils # (1.3-7.7) k/uL Lymphocytes # (1.0-4.8) k/uL Monocytes # (0-1.0) k/uL Eosinophils # (0-0.7) k/uL Basophils # (0-0.2) k/uL Sodium (137-145) mmol/L Potassium (3.5-5.1) mmol/L Chloride (98-107) mmol/L Carbon Dioxide (22-30) mmol/L Anion Gap mmol/L BUN (7-17) mg/dL Creatinine (0.52-1.04) mg/dL Est GFR (CKD-EPI)AfAm (>60 ml/min/1.73 sqM) Est GFR (CKD-EPI)NonAf (>60 ml/min/1.73 sqM) Glucose (74-99) mg/dL Lactic Ac Sepsis Rflx Y Plasma Lactic Acid Robbin (0.7-2.0) mmol/L Calcium (8.4-10.2) mg/dL Phosphorus (2.5-4.5) mg/dL Magnesium (1.6-2.3) mg/dL Total Bilirubin (0.2-1.3) mg/dL AST (14-36) U/L ALT (4-34) U/L Alkaline Phosphatase (38-126) U/L Total Protein (6.3-8.2) g/dL Albumin (3.5-5.0) g/dL Amylase (30-110) U/L Lipase (23-300) U/L Urine Color Yellow Urine Appearance Turbid H (Clear) Urine pH 5.5 (5.0-8.0) Ur Specific [place] 1.027 (1.001-1.035) Urine Protein 2+ H (Negative) Urine Glucose (UA) Trace H (Negative) Urine Ketones Negative (Negative) Urine Blood Moderate H (Negative) Urine Nitrite Negative (Negative) Urine Bilirubin 1+ H (Negative) Urine Urobilinogen 2.0 (<2.0) mg/dL Ur Leukocyte Esterase Large H (Negative) Urine RBC 9 H (0-5) /hpf Urine WBC 45 H (0-5) /hpf Ur Squamous Epith Cells 12 H (0-4) /hpf Hyaline Casts 308 H (0-2) /lpf Urine Mucus Many H (None) /hpf Influenza Type A (PCR) Not Detected (Not Detectd) Influenza Type B (PCR) Not Detected (Not Detectd) RSV (PCR) Not Detected (Not Detectd) SARS-CoV-2 (PCR) Not Detected (Not Detectd) 02/24/24 Range/Units 14:33 WBC (3.8-10.6) k/uL RBC (3.80-5.40) m/uL Hgb (11.4-16.0) gm/dL Hct (34.0-46.0) % MCV (80.0-100.0) fL MCH (25.0-35.0) pg MCHC (31.0-37.0) g/dL RDW (11.5-15.5) % Plt Count (150-450) k/uL MPV Neutrophils % % Lymphocytes % % Monocytes % % Eosinophils % % Basophils % % Neutrophils # (1.3-7.7) k/uL Lymphocytes # (1.0-4.8) k/uL Monocytes # (0-1.0) k/uL Eosinophils # (0-0.7) k/uL Basophils # (0-0.2) k/uL Sodium (137-145) mmol/L Potassium (3.5-5.1) mmol/L Chloride (98-107) mmol/L Carbon Dioxide (22-30) mmol/L Anion Gap mmol/L BUN (7-17) mg/dL Creatinine (0.52-1.04) mg/dL Est GFR (CKD-EPI)AfAm (>60 ml/min/1.73 sqM) Est GFR (CKD-EPI)NonAf (>60 ml/min/1.73 sqM) Glucose (74-99) mg/dL Lactic Ac Sepsis Rflx Plasma Lactic Acid Robbin 1.0 (0.7-2.0) mmol/L Calcium (8.4-10.2) mg/dL Phosphorus (2.5-4.5) mg/dL Magnesium (1.6-2.3) mg/dL Total Bilirubin (0.2-1.3) mg/dL AST (14-36) U/L ALT (4-34) U/L Alkaline Phosphatase (38-126) U/L Total Protein (6.3-8.2) g/dL Albumin (3.5-5.0) g/dL Amylase (30-110) U/L Lipase (23-300) U/L Urine Color Urine Appearance (Clear) Urine pH (5.0-8.0) Ur Specific [place] (1.001-1.035) Urine Protein (Negative) Urine Glucose (UA) (Negative) Urine Ketones (Negative) Urine Blood (Negative) Urine Nitrite (Negative) Urine Bilirubin (Negative) Urine Urobilinogen (<2.0) mg/dL Ur Leukocyte Esterase (Negative) Urine RBC (0-5) /hpf Urine WBC (0-5) /hpf Ur Squamous Epith Cells (0-4) /hpf Hyaline Casts (0-2) /lpf Urine Mucus (None) /hpf Influenza Type A (PCR) (Not Detectd) Influenza Type B (PCR) (Not Detectd) RSV (PCR) (Not Detectd) SARS-CoV-2 (PCR) (Not Detectd) - Radiology Data Radiology results: report reviewed, image reviewed Disposition Clinical Impression: Colitis, Nausea and vomiting, Diarrhea Disposition: HOME SELF-CARE Instructions (If sedation given, give patient instructions): Acute Nausea and Vomiting (ED), Acute Diarrhea (ED) Additional Instructions: Return to the emergency department with any new, worsening, or concerning symptoms. Take the Lomotil as 1 to 2 tablets up to 4 times daily. Take the Zofran up to every 8 hours as needed for nausea and vomiting. Follow up with your primary care provider in 1-2 days. Prescriptions: Diphenox-Atrop 2.5-0.025 mg [Lomotil] 1 - 2 tab PO QID PRN 3 Days #24 tab PRN Reason: Diarrhea Ondansetron Odt [Zofran Odt] 4 mg PO Q8HR PRN #20 tab PRN Reason: Nausea And Vomiting Is patient prescribed a controlled substance at d/c from ED?: Yes When asked, does pt state using other controlled substances?: No If prescribed controlled substance>3 days was MAPS reviewed?: Prescribed <3 Days Referrals: Heri Zayas MD [Primary Care Provider] - 1-2 days Time of Disposition: 15:05
[2024-02-24] MEDS: DIPHENOX-ATROP 2.5-0.025 MG 1 EACH TAB PO STA (09:15)
[2024-02-24] MEDS: ONDANSETRON 4 MG/2 ML VIAL IVP STA (09:21)
[2024-02-24] MEDS: PANTOPRAZOLE 40 MG/10 ML VIAL IVP STA (09:22)
[2024-02-24] MEDS: MORPHINE SULFATE 4 MG/ML SYRINGE IVP STA ×2 (09:22→12:55)
[2024-02-24] MEDS: SODIUM CHLORIDE 0.9% 1,000 ML IV STA ×2 (09:23→10:11)
[2024-02-24 09:39] LABS: Basophils % (A) 0 %; Eosinophils # (A) 0.2 k/uL (0-0.7); Eosinophils % (A) 1 %; HCT 45.1 % (34.0-46.0); HGB 15.6 gm/dL (11.4-16.0); Lymphocytes # (A) 0.7 k/uL (1.0-4.8); Lymphocytes % (A) 4 %; MCH 29.2 pg (25.0-35.0); MCHC 34.6 g/dL (31.0-37.0); MCV 84.3 fL (80.0-100.0); Mean Platelet Volume 8.8; Monocytes # (A) 0.5 k/uL (0-1.0); Monocytes % (A) 3 %; Neutrophils # (A) 15.3 k/uL (1.3-7.7); Neutrophils % (A) 91 %; Platelet Count 293 k/uL (150-450); RBC 5.34 m/uL (3.80-5.40); RDW 13.3 % (11.5-15.5); WBC 16.8 k/uL (3.8-10.6)
[2024-02-24 09:56] LABS: ALT 19 U/L (4-34); AST 27 U/L (14-36); African American GFR (CKD) 33 (>60 ml/min/1.73 sqM); Alkaline Phosphatase 107 U/L (38-126); Amylase 59 U/L (30-110); Anion Gap 19 mmol/L; Blood Urea Nitrogen 27 mg/dL (7-17); Calcium 10.5 mg/dL (8.4-10.2); Carbon Dioxide 19 mmol/L (22-30); Chloride 97 mmol/L (98-107); Glucose 164 mg/dL (74-99); Lipase 67 U/L (23-300); Magnesium 1.8 mg/dL (1.6-2.3); Non-African American GFR(CKD) 29 (>60 ml/min/1.73 sqM); Phosphorus 4.5 mg/dL (2.5-4.5); Potassium 3.4 mmol/L (3.5-5.1); Sodium 135 mmol/L (137-145); Total Bilirubin 0.5 mg/dL (0.2-1.3); Total Protein 8.8 g/dL (6.3-8.2)
--- NOTE | 2024-02-24 10:42 | CT ---
EXAMINATION TYPE: CT abdomen pelvis wo con CT DLP: 855.6 mGycm, Automated exposure control for dose reduction was used. DATE OF EXAM: 02/24/2024 10:34 AM COMPARISON: 06/11/2019 CLINICAL INDICATION: Female, 53 years old with history of Lower abdominal pain; Lower abdominal pain TECHNIQUE: Axial CT abdomen pelvis wo con;Sagittal and coronal reformats were created on a separate workstation. Contrast used: mL of , (none if empty) Oral contrast used: without Oral Contrast (none if empty) FINDINGS: LOWER CHEST: Unremarkable ABDOMEN LIVER: Unremarkable GALLBLADDER AND BILE DUCTS: Unremarkable. PANCREAS: Unremarkable. SPLEEN: Small splenule is present. ADRENAL GLANDS: Unremarkable. KIDNEYS AND URETERS: No evidence of hydronephrosis or renal calculus. The ureters are unremarkable. PELVIS BLADDER: Unremarkable REPRODUCTIVE: Tubal ligation clips bilaterally. ABDOMEN & PELVIS STOMACH AND BOWEL: Mild vasa recta engorgement of the cecum series 202 image 40. No wall is also prom inent in this region of the lung at the terminal ileum. No evidence of bowel obstruction. Scattered c olonic diverticula. Third portion duodenal diverticulum. The appendix is not discretely visualized. PERITONEUM/RETROPERITONEUM: No evidence of pneumoperitoneum or free fluid. VASCULATURE: No evidence of aortic aneurysm. MUSCULOSKELETAL: No acute osseous abnormalities LYMPH NODES: No gross evidence for lymphadenopathy. SOFT TISSUE/ABDOMINAL WALL: Fat-containing umbilical hernia. IMPRESSION: 1. Mild colitis of the cecum with vasa recta engorgement wall prominence and minimal adjacent fat st randing. 2. Colonic diverticulosis. 3. No obstructive uropathy or renal calculus.
[2024-02-24] MEDS: KETOROLAC 15 MG/ML 1 ML VIAL IVP STA (12:31)
[2024-02-24 12:34] LABS: Appearance,Urine Turbid (Clear); Bilirubin,Urine 1+ (Negative); Blood,Urine Moderate (Negative); Color,Urine Yellow; Glucose,Urine (UA) Trace (Negative); Hyaline Casts,Urine 308 /lpf (0-2); Ketones,Urine Negative (Negative); Leukocyte Esterase,Urine Large (Negative); Mucus,Urine Many /hpf; Nitrite,Urine Negative (Negative); PH, Urine 5.5 (5.0-8.0); Protein,Urine 2+ (Negative); RBC,Urine 9 /hpf (0-5); Specific Gravity,Urine 1.027 (1.001-1.035); Squamous Epithelial Cell,Urine 12 /hpf (0-4); WBC,Urine 45 /hpf (0-5)
[2024-02-24] MEDS: HYDROmorphone 0.5 MG/0.5 ML SYRINGE IVP STA (13:15)
[2024-02-24 16:56] VITALS: BP 130/83; PULSE 69; RESP 17; TEMP 98
== END 2024-02-24 16:56 | disposition home or self-care (01) ==
LOC: EC 08:29
CPT/HCPCS: 36415; 74176; 80053; 81001; 82150; 83605; 83690; 83735; 84100; 85025; 87636; 96361; 96374; 96375; 96376; 99284